=== PATIENT | female | born 1990 | race Caucasian/White ===

== ENCOUNTER 2016-11-22 01:00 | Emergency (ER) | payer OTHER ==
[~2016-11-22] VITALS: Ht 162.6 cm; Wt 100.3 kg
[~2016-11-22 01:00] MED LIST: AMOXICILLIN500 MG PO; BACTRIM,SEPT1 TABLET PO; Birth Control; FLOMAX0.4 MG PO; IBUPROFEN800 MG PO; LEVAQUIN500 MG PO; NEXPLANON68 MG SC; PERCOCET 5/31 TABLET PO; PREDNISONE20 MG PO; PROAIR HFA8.5 GM IH; TESSALON PERLE100 MG PO
[2016-11-22 01:48] LABS: HEMATOCRIT 40.6 % (36.0-46.0); MCH 29.3 PG (29.0-34.0); MCHC 33.7 G/DL (30.0-36.0); MCV 86.9 FL (83-99); MEAN PLAT.VOLUME 10.9 uM^3 (9.5-12.4); PLATELET COUNT 292 K/uL (156-360); RBC DIS.WIDTH-CV 12.7 % (11.8-14.6); RBC DIS.WIDTH-SD 39.2 % (39-53); RED BLOOD COUNT 4.67 M/uL (3.80-5.20); WHITE BLOOD COUNT 13.2 K/uL (4.1-10.2)
[2016-11-22 01:56] LABS: CHLORIDE 106 mEq/L (99-109); POTASSIUM 3.9 mEq/L (3.7-5.4); SODIUM 141 mEq/L (136-147)
[2016-11-22 01:58] LABS: GLUCOSE 106 mg/dL (70-99)
[2016-11-22 01:59] LABS: ANION GAP 10 MEQ/L (2-14)
[2016-11-22 02:01] LABS: ADD MIUA? YES; BILIRUBIN NEGATIVE; BLOOD LARGE; COLOR DK YELLOW ((YELLOW)); GLUCOSE (STRIP) NEGATIVE; KETONES NEGATIVE; LEUKOCYTES SMALL; NITRITE NEGATIVE; PH, URINE 5.5 (5-8); PROTEIN (STRIP) 30; SPECIFIC GRAVITY 1.029 (1.000-1.030); UROBILINOGEN 0.2 MG/DL (0.2-1.0)
[2016-11-22 02:02] LABS: GFR ESTIMATE (CALCULATED) > 59 mL/min/
[2016-11-22 02:03] LABS: UREA NITROGEN (BUN) 14 mg/dL (9-23)
[2016-11-22 02:12] LABS: QUANTITATIVE HCG < 4.0 MIU/ML
[2016-11-22 02:16] LABS: BACTERIA RARE /HPF; BUDDING YEAST 1+; EPITHELIAL CELLS 3+ /HPF; MUCUS 3+ /LPF; RED BLOOD CELLS TNTC /HPF (0-5); UCUL ADDED? YES; WHITE BLOOD CELLS TNTC /HPF (0-5)
[2016-11-22] MEDS ORDERED: PERCOCET 5/31 TABLET PO (02:41)
[2016-11-22] MEDS ORDERED: BACTRIM,SEPT1 TABLET PO (02:41)
[2016-11-22] MEDS ORDERED: TORADOL10 MG PO (02:41)
[2016-11-22 02:57] VITALS: BP 113/78
== END 2016-11-22 02:58 | disposition home or self-care (01) ==
LOC: EXP 01:00 → EME 01:00 → EXP 02:58
DX: N39.0 Urinary tract infection, site not specified (principal); R10.9 Unspecified abdominal pain; I10 Essential (primary) hypertension; Z87.442 Personal history of urinary calculi
CPT/HCPCS: 74000; 80048; 81003; 84702; 85027; 87077; 87086; 87186; 99281; 99284; J1885